=== PATIENT | male | born 1945 | race Caucasian/White ===

== ENCOUNTER → 2018-08-08 | Day surgery (SDC) | payer MEDICARE, BC ==
[~2018-08-08] MED LIST: Benzocaine 20% Oral Spray 59.2 ML Canister MUCMEM ONE; Lactated Ringers 1,000 ML IV SCH; Meperidine PF 25 MG/ML Syringe IV ONE; Midazolam 1 MG/ML 2 ML SDV IV ONE
[2018-08-08 16:24] VITALS: BP 120/70
--- NOTE | 2018-08-09 08:28 | OR ---
DATE OF OPERATION: 08/08/2018 PREOPERATIVE DIAGNOSIS: GASTROESOPHAGEAL REFLUX DISEASE. POSTOPERATIVE DIAGNOSIS: SPONTANEOUS GASTROESOPHAGEAL REFLUX DISEASE WITH REFLUX ESOPHAGITIS AND LIKELY BAR'S CHANGES. SURGEON: Phuc Valero MD PROCEDURE: DIAGNOSTIC EGD WITH BIOPSIES X5, BAKARI, FUNDAL POLYP REMOVAL X1. ANESTHESIA: Conscious sedation with continuous O2 saturation monitoring and nurses assist. O2 saturation remained above 90% for the entire procedure. COMPLICATIONS: None. SPECIMEN: 1. Duodenal biopsy x1. 2. Antral biopsy x1. 3. Fundal polyp. 4. BAKARI. 5. Distal esophageal biopsy x3. FINDINGS: 1. Full-length EGD. 2. Minimal duodenitis and gastritis. 3. Benign-appearing adenomatous fundal polyp. 4. Spontaneous GERD with likely Bar's esophagus. RECOMMENDATIONS: The patient will continue on proton pump therapy, and we will follow up for pathology reports in the next 2 weeks. INDICATIONS: The patient was in for a physical, admits to having some persistent heartburn on and off for the last year. We recommended diagnostic EGD. DESCRIPTION OF PROCEDURE: The patient was prepped and draped, placed in the left lateral decubitus position. A lubricated Olympus gastroscope was inserted over a bit, advanced to cricopharyngeus area, and easily intubated into the esophagus with patient swallow. Esophageal lining was benign until approximately 30 cm eh, where the patient had what appears to be long segment Bar's changes associated with GERD. Biopsies x3 of the leading edges of these were taken. The scope was advanced into the stomach through the pylorus and into the second portion of the duodenum. This and the duodenal bulb were grossly benign. There is a small amount of inflammation in the duodenal bulb, possibly trauma related from the scope. We did do biopsy of the area. The scope was brought back into the stomach, retroflexed, and the upper fundus and cardia were grossly benign. The patient did have a small adenomatous polyp in the distal fundus, which was removed in its entirety with a forceps. There were minimal signs of gastritis at the distal antrum near the pylorus. Biopsy of that was taken along with a CLOtest. No other polyps, masses, or lesions were seen. Air was then suctioned from the stomach the scope was removed without complication. The patient was stable in the recovery room. JONNY/JARAD /[id number]
== END ==
LOC: CC.SDS 11:58
PROVIDERS: ATTEND Family Medicine
DX: K21.0 Gastro-esophageal reflux disease with esophagitis (principal); I10 Essential (primary) hypertension; N40.0 Benign prostatic hyperplasia without lower urinary tract symptoms; N52.9 Male erectile dysfunction, unspecified; M75.40 Impingement syndrome of unspecified shoulder; R79.89 Other specified abnormal findings of blood chemistry; R09.89 Other specified symptoms and signs involving the circulatory and respiratory systems; Z79.82 Long term (current) use of aspirin; Z79.899 Other long term (current) drug therapy
CPT/HCPCS: 36415; 43239; 84153; 87081; J2175; J2250; J7120

== ENCOUNTER → 2019-08-17 | Day surgery (SDC) | payer MEDICARE, BC ==
[~2019-08-17] MED LIST changes: -Benzocaine 20% Oral Spray 59.2 ML Canister MUCMEM ONE; +Ketamine 200 MG/20 ML MDV IV ONE; -Lactated Ringers 1,000 ML IV SCH; -Meperidine PF 25 MG/ML Syringe IV ONE; -Midazolam 1 MG/ML 2 ML SDV IV ONE; +Propofol 200 MG/20 ML SDV IV ONE; +fentaNYL 100 MCG/2 ML SDV IV ONE
[2019-08-17] MEDS: Lactated Ringers 1,000 ML IV SCH (08:07)
[2019-08-17 08:57] VITALS: PULSE 60
[2019-08-17 09:39] VITALS: BP 123/73
--- NOTE | 2019-08-17 12:24 | OR ---
DATE OF OPERATION: 08/17/2019 PREOPERATIVE DIAGNOSIS: BAR'S ESOPHAGUS. POSTOPERATIVE DIAGNOSIS: BAR'S ESOPHAGUS. SURGEON: Phuc Valero MD PROCEDURE: SURVEILLANCE EGD WITH BIOPSIES X10, BAKARI. ANESTHESIA: MAC. COMPLICATIONS: None. SPECIMEN: 1. Antral biopsy x1. 2. Antral BAKARI. 3. Esophageal biopsies x9. FINDINGS: 1. Full-length EGD. 2. Minimal antral gastritis without ulceration or erosion. 3. Hiatal hernia with GERD. 4. Bar's esophagus. RECOMMENDATIONS: Surveillance EGDs every 2 years pending path reports. INDICATIONS: The patient has known reflux. Prior EGD showed Bar's esophagus. He is in for surveillance EGD. DESCRIPTION OF PROCEDURE: The patient was prepped and draped, placed in the left lateral decubitus position. A lubricated Olympus gastroscope was inserted over a bit, advanced to cricopharyngeus area, and easily intubated into the esophagus. The esophageal lining was benign around 20 cm. There appeared to be 1 short area of Bar's, we did a biopsy of it. The distal esophagus in its final 5 cm had Bar's changes. We did 4 biopsies of the leading edge and 2 cm down. The hiatal hernia present with spontaneous GERD. Biopsies were done at 30 and 32 cm respectively. The scope was advanced into the stomach, a small amount of antral gastritis present. One area in particular was biopsied for representation. A CLOtest was obtained. The scope was easily advanced through the pylorus and into the second portion of duodenum. This and the duodenal bulb were benign. Air was then suctioned and the scope was removed without complication. JONNY/JARAD /[id number]
== END ==
LOC: CC.SDS 07:38
PROVIDERS: ATTEND Family Medicine
DX: K22.70 Barrett's esophagus without dysplasia (principal); K44.9 Diaphragmatic hernia without obstruction or gangrene; K29.50 Unspecified chronic gastritis without bleeding; K21.0 Gastro-esophageal reflux disease with esophagitis; N40.0 Benign prostatic hyperplasia without lower urinary tract symptoms; R97.20 Elevated prostate specific antigen [PSA]; N52.9 Male erectile dysfunction, unspecified; I10 Essential (primary) hypertension; R79.89 Other specified abnormal findings of blood chemistry; M75.40 Impingement syndrome of unspecified shoulder; Z11.59 Encounter for screening for other viral diseases; Z79.82 Long term (current) use of aspirin; Z79.899 Other long term (current) drug therapy
CPT/HCPCS: 43239; 87081; J2704; J3010; J7120; U0002; 00731; 88305

== ENCOUNTER → 2021-08-28 | Day surgery (SDC) | payer MEDICARE, BC ==
[~2021-08-28] MED LIST changes: -Ketamine 200 MG/20 ML MDV IV ONE; +Lactated Ringers 1,000 ML IV SCH; +Lidocaine 2% 5 ML SDV ONE; -Propofol 200 MG/20 ML SDV IV ONE; +Propofol 200 MG/20 ML SDV ONE; +ePHEDrine 50 MG/ML SDV ONE; -fentaNYL 100 MCG/2 ML SDV IV ONE; +fentaNYL 50 MCG/ML SDV ONE
[2021-08-28 09:54] VITALS: BP 116/60; PULSE 64
== END ==
LOC: CC.SDS 09:01
PROVIDERS: ATTEND Family Medicine
DX: K22.70 Barrett's esophagus without dysplasia (principal); K44.9 Diaphragmatic hernia without obstruction or gangrene; K20.90 Esophagitis, unspecified without bleeding; N40.0 Benign prostatic hyperplasia without lower urinary tract symptoms; N52.9 Male erectile dysfunction, unspecified; K21.00 Gastro-esophageal reflux disease with esophagitis, without bleeding; I10 Essential (primary) hypertension; G62.9 Polyneuropathy, unspecified; Z79.82 Long term (current) use of aspirin; Z79.899 Other long term (current) drug therapy; Z98.890 Other specified postprocedural states
CPT/HCPCS: 00731; 87081; J2704; J3010; J7120

== ENCOUNTER 2023-10-07 10:34 | Day surgery (SDC) | payer MEDICARE, BC ==
[2023-10-07] MEDS: Lactated Ringers 1,000 ML IV SCH (10:47)
[2023-10-07] MEDS ORDERED: fentaNYL 50 MCG/ML SDV ONE (11:02)
[2023-10-07] MEDS ORDERED: Propofol 200 MG/20 ML SDV ONE ×2 (11:02)
[2023-10-07] MEDS ORDERED: Phenylephrine 1% 10 MG/ML SDV ONE (11:02)
[2023-10-07] MEDS ORDERED: ePHEDrine 50 MG/ML SDV ONE (11:02)
[2023-10-07] MEDS ORDERED: Lidocaine 2% 20 ML MDV ONE (11:02)
[2023-10-07] MEDS ORDERED: Ketamine 200 MG/20 ML MDV ONE (11:02)
[2023-10-07 13:04] VITALS: BP 122/56; PULSE 66
== END 2023-10-07 13:15 | disposition home or self-care (01) ==
LOC: CC.SDS 10:34
PROVIDERS: ATTEND Family Medicine
DX: Z12.11 Encounter for screening for malignant neoplasm of colon (principal); D12.5 Benign neoplasm of sigmoid colon; K22.70 Barrett's esophagus without dysplasia; K44.9 Diaphragmatic hernia without obstruction or gangrene; I10 Essential (primary) hypertension; K21.9 Gastro-esophageal reflux disease without esophagitis; N40.0 Benign prostatic hyperplasia without lower urinary tract symptoms; Z79.899 Other long term (current) drug therapy
CPT/HCPCS: 00813; 88305; 99100; J2371; J2704; J3010; J3490; J7120